=== PATIENT | female | born 1990 | race Hispanic/Latino ===

== ENCOUNTER 2023-06-18 12:34 | Outpatient (CLI) | payer OTHER | END 2023-06-18 12:35 | disposition home or self-care (01) | LOC: CSHULT 12:34 | PROVIDERS: ATTEND Nurse Practitioner Women's Health | DX: O09.892 Supervision of other high risk pregnancies, second trimester (principal); Z3A.25 25 weeks gestation of pregnancy | CPT/HCPCS: 76805 ==

== ENCOUNTER 2023-09-21 18:00 | Inpatient (IN) | payer MEDICAID, OTHER, SELFPAY ==
[2023-09-21 19:21] VITALS: BMI 30.2
[2023-09-21] MEDS ORDERED: fentaNYL 50 mcg/mL 1 mL Vial SLOW IVP PRN (19:58)
[2023-09-21] MEDS ORDERED: Ondansetron PF 4 MG/2 ML Vial IVP PRN (19:58)
[2023-09-21] MEDS ORDERED: Diphenoxylate HCl/Atropine Tablet PO PRN (19:58)
[2023-09-21] MEDS ORDERED: Lidocaine 1% (PF) 30 ML VIAL SC PRN (19:58)
[2023-09-21] MEDS ORDERED: HYDROcodone/Acetaminophen 5/325 mg Tablet PO PRN (19:58)
[2023-09-21] MEDS ORDERED: Acetaminophen 500 MG TAB PO PRN (19:58)
[2023-09-21] MEDS ORDERED: Methylergonovine 0.2 MG/ML VIAL IM PRN (19:58)
[2023-09-21] MEDS ORDERED: Misoprostol 200 MCG TAB PR PRN (19:58)
[2023-09-21] MEDS ORDERED: Ibuprofen 800 MG TAB PO PRN (19:58)
[2023-09-21] MEDS ORDERED: Carboprost 250 MCG/ML AMP IM PRN (19:58)
[2023-09-21] MEDS ORDERED: Tranexamic Acid 1,000 MG/10 ML VIAL IVP PRN (19:58)
[2023-09-21] MEDS ORDERED: Promethazine HCl 25 MG/ML VIAL IM PRN (19:58)
[2023-09-21] MEDS ORDERED: hydrALAZINE 20 MG/ML VIAL SLOW IVP PRN (19:58)
[2023-09-21] MEDS ORDERED: Lactated Ringer's 1,000 ML IV SCH (20:00)
[2023-09-21] MEDS ORDERED: Oxytocin 30 units/NS 500 ML 500 ML IV SCH ×3 (20:00)
[2023-09-21 20:26] LABS: Hematocrit 33.8 % (34.9-44.5); Hemoglobin 11.1 g/dL (12.0-15.5); Mean Corpuscular HGB CONC 32.8 g/dL (32.0-36.0); Mean Corpuscular Hemoglobin 28.7 pg (27.0-33.0); Mean Corpuscular Volume 87.3 fl (81.6-98.3); Mean Platelet Volume 13.4 fl (7.4-10.4); Platelet Count 188 10x3/uL (150-450); RBC Distribution Width 15.2 % (11.5-14.5); Red Blood Cell (RBC) Count 3.87 10x6/uL (3.90-5.03); White Blood Cell (WBC) Count 7.6 10x3/uL (3.5-10.5)
[2023-09-21 20:53] LABS: Syphilis Antibody Nonreactive (Nonreactive); Syphilis Antibody Index 0.02 S/CO (<1.00 Non-Reactive)
[2023-09-21 20:57] LABS: HBSAg Index 0.16 S/CO (0-0.99); Hep B Surf Ag - L&D Non-Reactive S/CO (NonReactive)
[2023-09-21] MEDS: Misoprostol 100 MCG TAB PO SCH (21:00)
[2023-09-22] MEDS: Misoprostol 100 MCG TAB PO SCH ×3 (03:00→16:49)
[2023-09-22] MEDS ORDERED: fentaNYL/Ropivacaine Epidural 0 ML ONE (13:34)
[2023-09-22] MEDS ORDERED: Benzocaine-Menthol 82.5 ML CAN TOP PRN (15:53)
[2023-09-22] MEDS ORDERED: HYDROcodone/Acetaminophen 5/325 mg Tablet PO PRN (15:53)
[2023-09-22] MEDS ORDERED: diphenhydrAMINE 25 MG CAP PO PRN (15:53)
[2023-09-22] MEDS ORDERED: Bisacodyl 10 MG SUPP PR PRN (15:53)
[2023-09-22] MEDS ORDERED: Milk Of Magnesia 30 ML UDCUP PO PRN (15:53)
[2023-09-22] MEDS ORDERED: Lanolin Ointment 7 GM TUBE TOP PRN (15:53)
[2023-09-22] MEDS ORDERED: hydrALAZINE 20 MG/ML VIAL SLOW IVP PRN (15:53)
[2023-09-22] MEDS ORDERED: Ondansetron PF 4 MG/2 ML Vial IVP PRN (15:53)
[2023-09-22] MEDS ORDERED: Preparation H Ointment 28 GM TUBE PR PRN (15:53)
[2023-09-22] MEDS ORDERED: Boostrix 0.5 ML (Tdap) VIAL (>/=7 yrs of age) IM ONE (15:53)
[2023-09-22] MEDS ORDERED: Ibuprofen 800 MG TAB PO SCH (16:00)
[2023-09-22] MEDS: Ferrous Sulfate 325 MG TAB PO SCH (17:11)
[2023-09-22] MEDS: Docusate 100 MG CAP PO SCH (21:40)
[2023-09-22] MEDS: Ibuprofen 800 MG TAB PO SCH (21:40)
[2023-09-23] MEDS: Ibuprofen 800 MG TAB PO SCH ×2 (05:43→14:27)
[2023-09-23] MEDS: Docusate 100 MG CAP PO SCH (08:48)
[2023-09-23] MEDS ORDERED: Prenatal Vitamin 1 TAB PO SCH (09:00)
[2023-09-23] MEDS: Ferrous Sulfate 325 MG TAB PO SCH (09:02)
[2023-09-23 11:24] VITALS: BP 93/45; TEMP 98.3
[2023-09-23] MEDS ORDERED: Measles/Mumps/Rubella 10 MCG/0.5 ML VIAL SC ONE (17:15)
== END 2023-09-23 17:45 | disposition home or self-care (01) | DRG 807 ==
LOC: CSHLD 18:37 → CSHPED 09-22 16:15
PROVIDERS: ADMIT Family Medicine; ATTEND Family Medicine
PROC: 10907ZC Drainage of Amniotic Fluid, Therapeutic from Products of Conception, Via Natural or Artificial Opening (ICD-10-PCS; 2023-09-21)
PROC: 3E0P7VZ Introduction of Hormone into Female Reproductive, Via Natural or Artificial Opening (ICD-10-PCS; 2023-09-21)
PROC: 10E0XZZ Delivery of Products of Conception, External Approach (ICD-10-PCS; principal; 2023-09-22)
DX: O24.420 Gestational diabetes mellitus in childbirth, diet controlled (principal); Z37.0 Single live birth; Z3A.39 39 weeks gestation of pregnancy
CPT/HCPCS: 36415; 36416; 85027; 86780; 86850; 86900; 86901; 87340; 90707; J2590; J7120